=== PATIENT | female | born 1980 | race Caucasian/White ===

== ENCOUNTER 2016-08-24 14:15 | Emergency (ER) | payer OTHER ==
[~2016-08-24] VITALS: Ht 165.1 cm; Wt 60.3 kg
[~2016-08-24 14:15] MED LIST: LBT100 PO; MTR600X PO; PRENTAB26 PO
[2016-08-24 14:26] VITALS: TEMP 36.9; Ht 165.1 cm; Wt 60.3 kg
[2016-08-24] MEDS ORDERED: SODIUM CHLORIDE 0.9% 1000ML 1,000 ML IV STA (16:17)
[2016-08-24 16:42] VITALS: O2SAT 99
[2016-08-24 16:46] LABS: BASO % 0.3 %; BASO ABS # 0.02 K/uL (0-0.2); COMPLETE YES; EOS % 2.7 %; IG% 0.1 %; LYMPH % 26.3 %; LYMPH ABS # 1.77 K/uL (1.2-3.4); MEAN CELL VOLUME 84.4 fL (80-100); MEAN CORPUSCULAR HEMOGLOBIN 30.5 pg (25-34); MEAN CORPUSCULAR HGB CONC 36.1 g/dl (32-36); MEAN PLATELET VOLUME 10.9 fL (7.4-10.4); MONO % 5.5 %; NEUT % 65.1 %; PLATELET COUNT 199 K/uL (130-400); RED BLOOD COUNT 4.86 M/uL (4.2-5.4); WHITE BLOOD COUNT 6.73 K/uL (4.8-10.8)
[2016-08-24 17:02] LABS: URINE APPEARANCE CLEAR (CLEAR); URINE BILIRUBIN NEG (NEG); URINE COLOR YELLOW; URINE NITRITE NEG (NEG); URINE SPECIFIC GRAVITY 1.028 (1.000-1.030); UROBILINOGEN NEG (NEG)
[2016-08-24 17:04] LABS: ALT/SGPT 24 U/L (12-78); AST/SGOT 11 U/L (15-37); BLOOD UREA NITROGEN 16 mg/dl (7-18); BUN/CREATININE RATIO 17.7 (10-20); CALCIUM 8.8 mg/dl (8.5-10.1); CARBON DIOXIDE 27 mmol/L (21-32); CHLORIDE 106 mmol/L (98-107); CREATININE 0.92 mg/dl (0.60-1.20); GLUCOSE 85 mg/dl (70-99); POTASSIUM 3.7 mmol/L (3.5-5.1); SODIUM 141 mmol/L (136-145)
[2016-08-24] MEDS ORDERED: BCPILLS PO (17:11)
[2016-08-24 17:14] LABS: ALKALINE PHOSPHATASE 58 U/L (45-117)
[2016-08-24 17:19] LABS: MANUAL MICROSCOPIC REQUIRED? NO; REVIEW REQ? NO
[2016-08-24 18:16] VITALS: BP 129/77; PULSE 71; O2SAT 100
--- NOTE | 2016-08-24 21:26 | EMERGENCY ROOM VISIT NOTE ---
History Report prepared by Oswaldo: Ramona Ruby Under the Supervision of: Dr. Kvng Gill M.D. First contact with patient: 16:17 Chief Complaint: SYNCOPE (NEAR SYNCOPE) Stated Complaint: SYNCOPE,BREATHING DIFFICULITIES History of Present Illness The patient is a 36 year old female who presents to the Emergency Room with complaints of a sudden episode of syncope that occurred this morning. The patient states that she woke up around 0600 this morning with lower abdominal cramping. The abdominal cramping did not feel like menstrual cramps and she has never experienced similar cramping in the past. She felt like she needed to have a bowel movement so she went and sat on the toilet. As she was sitting on the toilet, the pain got worse. She began to sweat and felt like she was going to experience syncope so she leaned back on the toilet and rested her arm on the counter next to the toilet. The patient states that she was also experiencing shortness of breath and chest heaviness. She then experienced syncope, which she states lasted for a couple seconds. When she became conscious again, she states that she couldn't move and she felt "drained and wiped out." She was still experiencing chest heaviness and shortness of breath after the syncopal event. She also developed nausea after syncope. The patient states that she eventually had a bowel movement and it was normal. She made her way back to her bed and she slept for a while. When she woke up, she still had chest heaviness and some shortness of breath but the cramping was gone. After she got out of bed, she experienced multiple dizzy spells. Pt denies abnormal headache, fevers, chills, visual changes, neck pain, vomiting, melena, hematochezia, urinary symptoms, numbness, lymphadenopathy, lower extremity pain or edema, rash, or other complaints. She reports that she has been eating and drinking normally. Additionally, the patient experienced chest pain two days ago that radiated straight through to her back. The patient called her PCP and they recommended coming into the ED for further evaluation. She states that she has never experienced syncope before. The patient adds that she is on control pills and she is supposed to get her menstrual period this week, but she has not gotten it yet. The patient denies any history of abdominal surgeries. Source of History: patient Onset: this morning Position: other (global) Quality: other (syncope) Timing: other (sudden) Associated Symptoms: + SOB, + abdominal pain (cramping), + chest pain ( heaviness), + fatigue, + nausea, + weakness Note: dizziness Review of Systems See HPI for pertinent positives and negatives. A total of ten systems were reviewed and were otherwise negative. Past Medical & Surgical Medical Problems: (1) Elective induction of labor planned (2) HELLP syndrome Family History No pertinent family history Social History Smoking Status: Never Smoker Marital Status: Housing Status: lives with family Current/Historical Medications Scheduled Control Pills ( Control Pills), 1 TAB PO DAILY Allergies Coded Allergies: Penicillins (Verified Allergy, Mild, RASH, 07/03/15) Physical Exam Vital Signs Date Time Temp Pulse Resp B/P Pulse Ox O2 Delivery O2 Flow Rate FiO2 08/24/16 18:16 71 18 129/77 100 08/24/16 17:56 71 18 129/77 100 Room Air 08/24/16 16:47 70 17 99 Room Air 08/24/16 16:42 99 Room Air 08/24/16 16:40 70 08/24/16 16:39 65 17 132/77 72 123/80 85 110/83 08/24/16 14:26 36.9 78 18 130/83 97 Room Air Physical Exam GENERAL: Awake, alert, well-appearing, in no distress HENT: Normocephalic, atraumatic. Oropharynx unremarkable. EYES: Normal conjunctiva. Sclera non-icteric. NECK: Supple. No nuchal rigidity. FROM. No JVD. RESPIRATORY: Clear to auscultation. CARDIAC: Regular rate, normal rhythm. Extremities warm and well perfused. Pulses equal. ABDOMEN: Soft, non-distended. No tenderness to palpation. No rebound or guarding. No masses. RECTAL: Deferred. MUSCULOSKELETAL: Chest examination reveals no tenderness. The back is symmetrical on inspection without obvious abnormality. There is no CVA tenderness to palpation. No joint edema. LOWER EXTREMITIES: Calves are equal size bilaterally and non-tender. No edema. No discoloration. NEURO: Normal sensorium. No sensory or motor deficits noted. SKIN: No rash or jaundice noted. Medical Decision & Procedures Laboratory Results 08/24/16 16:25 Red Blood Count 4.86, Mean Corpuscular Volume 84.4, Mean Corpuscular Hemoglobin 30.5, Mean Corpuscular Hemoglobin Concent 36.1, Mean Platelet Volume 10.9, Neutrophils (%) (Auto) 65.1, Lymphocytes (%) (Auto) 26.3, Monocytes (%) (Auto) 5.5, Eosinophils (%) (Auto) 2.7, Basophils (%) (Auto) 0.3, Neutrophils # (Auto) 4.38, Lymphocytes # (Auto) 1.77, Monocytes # (Auto) 0.37, Eosinophils # (Auto) 0.18, Basophils # (Auto) 0.02 08/24/16 16:25 Test 08/24/16 00:00 08/24/16 16:25 08/24/16 16:30 08/24/16 16:36 Urine Color YELLOW Urine Appearance CLEAR (CLEAR) Urine pH 5.0 (4.5-7.5) Urine Specific Zenia 1.028 (1.000-1.030) Urine Protein NEG (NEG) Urine Glucose (UA) NEG (NEG) Urine Ketones NEG (NEG) Urine Occult Blood NEG (NEG) Urine Nitrite NEG (NEG) Urine Bilirubin NEG (NEG) Urine Urobilinogen NEG (NEG) Urine Leukocyte Esterase NEG (NEG) White Blood Count 6.73 K/uL (4.8-10.8) Red Blood Count 4.86 M/uL (4.2-5.4) Hemoglobin 14.8 g/dL (12.0-16.0) Hematocrit 41.0 % (37-47) Mean Corpuscular Volume 84.4 fL (80-100) Mean Corpuscular Hemoglobin 30.5 pg (25-34) Mean Corpuscular Hemoglobin Concent 36.1 g/dl (32-36) Platelet Count 199 K/uL (130-400) Mean Platelet Volume 10.9 fL (7.4-10.4) Neutrophils (%) (Auto) 65.1 % Lymphocytes (%) (Auto) 26.3 % Monocytes (%) (Auto) 5.5 % Eosinophils (%) (Auto) 2.7 % Basophils (%) (Auto) 0.3 % Neutrophils # (Auto) 4.38 K/uL (1.4-6.5) Lymphocytes # (Auto) 1.77 K/uL (1.2-3.4) Monocytes # (Auto) 0.37 K/uL (0.11-0.59) Eosinophils # (Auto) 0.18 K/uL (0-0.5) Basophils # (Auto) 0.02 K/uL (0-0.2) RDW Standard Deviation 39.9 fL (36.4-46.3) RDW Coefficient of Variation 13.1 % (11.5-14.5) Immature Granulocyte % (Auto) 0.1 % Immature Granulocyte # (Auto) 0.01 K/uL (0.00-0.02) Anion Gap 8.0 mmol/L (3-11) Est Creatinine Clear Calc Drug Dose 76.8 ml/min Estimated GFR () 93.5 Estimated GFR (Non- 80.7 BUN/Creatinine Ratio 17.7 (10-20) Calcium Level 8.8 mg/dl (8.5-10.1) Total Bilirubin 0.4 mg/dl (0.2-1) Direct Bilirubin < 0.1 mg/dl (0-0.2) Aspartate Amino Transf (AST/SGOT) 11 U/L (15-37) Alanine Aminotransferase (ALT/SGPT) 24 U/L (12-78) Alkaline Phosphatase 58 U/L (45-117) Total Protein 7.9 gm/dl (6.4-8.2) Albumin 4.0 gm/dl (3.4-5.0) Thyroid Stimulating Hormone (TSH) 1.920 uIu/ml (0.300-4.500) Urine Test NEG (NEG) Bedside D-Dimer 197 ng/mlFEU (0-450) Laboratory results reviewed by me Medications Administered Medications (Trade) Dose Ordered Sig/Marilyn Route Start Time Stop Time Status Last Admin Dose Admin Sodium Chloride (Nss 1000ml) 1,000 ml @ 999 mls/hr Q1H1M STAT IV 08/24/16 16:17 08/24/16 17:17 DC 08/24/16 16:48 999 MLS/HR ECG Indication: syncope Rate (beats per minute): 67 Rhythm: normal sinus Findings: no acute ischemic change, no ectopy, other (normal intervals) ED Course 1617: Ordered Sodium Chloride 1000 ml @ 999 mls/hr IV 1646: The patient was evaluated in room A6. A complete history and physical exam was performed. 1803: I reevaluated the patient. She is feeling better and would like to go home. Discussed results and discharge instructions: she verbalized understanding and agreement. The patient is ready for discharge. Medical Decision Triage Nursing notes reviewed and agree them. The patient's history was concerning for syncope. Differential diagnosis: Etiologies such as vasovagal event, infection, hypoglycemia, electrolyte abnormalities, cardiac sources, intracerebral event, toxicologic, neurologic, as well as others were entertained. Physical examination: As above. Nonfocal. The patient was doing well. No abdominal pain. ER treatment provided: IV hydration with normal saline On reassessment the patient felt better. Diagnostics interpretation by me: ECG: Normal. The labs revealed the patient had normal CBC and chemistry panel. Urinalysis negative. She is not . D-dimer negative. Imaging studies: Deferred The patient gives a very good history for a vasovagal event. She had intestinal cramping and became lightheaded. She notes being sweaty and had a tunnel vision. She passed out briefly but did not suffer any injury. Her symptoms are completely resolved. She had no seizure-like activity or history reported. The patient was informed. Conservative management was discussed. She felt comfortable with this. By the evaluation outlined above emergent etiologies such as infection, hypoglycemia, electrolyte abnormalities, cardiac sources, intracerebral event, PE, toxicologic, neurologic,as well as others were deemed relatively unlikely. The patient was informed about the findings as listed above. All questions were answered and she was pleased with the treatment. Return instructions were outlined and the patient was discharged in stable condition. Outpatient prescription management: None Referral: The patient was referred back to her primary care physician for follow-up in 2 to 3 days for a recheck of the current condition. The chart was completed utilizing [employer] Speech voice recognition software. Grammatical errors, random word insertions, pronoun errors, and incomplete sentences are an occasional consequence of this system due to software limitations, ambient noise, and hardware issues. Any formal questions or concerns about the content, text, or information contained within the body of this dictation should be directly addressed to the physician for clarification. Impression Primary Impression: Syncope Scribe Attestation The scribe's documentation has been prepared under my direction and personally reviewed by me in its entirety. I confirm that the note above accurately reflects all work, treatment, procedures, and medical decision making performed by me. Departure Information Dispostion Home / Self-Care Referrals Valerie Cagle M.D. (PCP) Forms HOME CARE DOCUMENTATION FORM, IMPORTANT VISIT INFORMATION Patient Instructions My [facility] Additional Instructions SYNCOPE INSTRUCTIONS: Ibuprofen(Motrin, Advil) may be used for fever or pain. Use 600mg every six hours as needed. Take with food. Avoid using more than 2400mg in a 24 hour period. Do not use 2400mg per day for more than three consecutive days without physician direction. Prolonged inappropriate use can lead to stomach upset or ulcers. (AND/OR) Acetaminophen(Tylenol) may be used for fever or pain. Use 1000mg every six hours as needed. Avoid using more than 4000mg in a 24 hour period. Rest and drink plenty of fluids as tolerated. Continue current medications. Return to the ER for passing out, chest pain, headache, persistent vomiting, fevers, abdominal pain, chest pains, difficulty breathing, black or bloody stools, worsening of your condition, or as needed. Follow up with your primary physician in 2-3 days for a recheck of your current condition Problem Qualifiers Primary Impression: Syncope Syncope type: unspecified Qualified Codes: R55 - Syncope and collapse
== END 2016-08-24 18:17 | disposition home or self-care (01) ==
LOC: C.EDB 14:20 → C.EDA 18:17
DX: R55 Syncope and collapse (principal); Z88.0 Allergy status to penicillin